=== PATIENT | male | born 1990 | race Caucasian/White ===

== ENCOUNTER 2021-08-12 22:47 | Emergency (ER) | payer OTHER, SELFPAY ==
[2021-08-12 22:57] VITALS: BMI 21.7
[2021-08-12 23:08] VITALS: BP 148/95; PULSE 116; RESP 16; TEMP 36.5; O2SAT 99
[2021-08-12 23:46] LABS: COVID-19 Test Negative (Negative); IDNOW Serial# 08D9AD1C
[2021-08-12 23:49] LABS: MANUAL DIFF FLAG NO
[2021-08-12 23:50] LABS: Basophils Absolute Auto 0.1 X10*3/uL (0.0-0.2); Basophils Percent Auto 0.5 % (0-2); Eosinophils Absolute Auto 0.3 X10*3/uL (0.0-0.4); Eosinophils Percent Auto 3.4 % (0-4); Hematocrit 45.4 % (42.0-52.0); Hemoglobin 16.1 g/dl (14.0-18.0); Imm Gran Abs Auto 0.05 X10*3/uL (0.00-0.03); Imm Gran Pct Auto 0.5 % (0.0-0.4); Lymphocytes Absolute Auto 3.4 X10*3/uL (1.2-4.9); Lymphocytes Percent Auto 35.8 % (20-40); Mean Corpuscular HGB Conc 35.5 g/dl (31.0-36.0); Mean Corpuscular Hemoglobin 29.6 pg (27.0-33.0); Mean Corpuscular Volume 83.5 fL (80.0-98.0); Mean Platelet Volume 9.7 fL (9.4-12.4); Monocytes Absolute Auto 0.7 X10*3/uL (0.1-1.2); Monocytes Percent Auto 6.8 % (2-11); Platelet Count 212 X10*3/uL (160-400); Red Blood Count 5.44 X10*6/uL (4.60-5.80); White Blood Count 9.5 X10*3/uL (4.8-10.8)
[2021-08-12 23:56] LABS: Amphetamine Screen Urine Not Detected (Not Detect); Barbiturates, Urine Not Detected (Not Detect); Benzodiazepines Screen Urine Not Detected (Not Detect); Cannabinoid Screen Urine Not Detected (Not Detect); Cocaine Screen Urine Not Detected (Not Detect); Fentanyl, urine Not Detected (Not Detect); Opiate Screen Urine Not Detected (Not Detect); Phencyclidine Screen Urine Not Detected (Not Detect)
--- NOTE | 2021-08-13 00:10 | ED_ITS ---
HPI - Psych General Chief Complaint: Psychiatric Symptoms Stated Complaint: ETOH Time Seen by Provider: 08/13/21 00:10 Source: patient Mode of arrival: ambulatory Limitations: no limitations History of Present Illness HPI Narrative: 30-year-old male no significant medical history presents to the emergency department with EMS on a Section 12 for suicidal ideation. According to EMS and patient patient was drinking today he tells me he had 5 twisted teas and he was drinking some bourbon, he texted his girlfriend made some comments he should in of said. His girlfriend called the police which showed of to his house and brought him in on a Section 12. Patient tells me he is very intoxicated. Denies drugs and and reports 2 packs per day of cigarettes. Denies visual, auditory and tactile hallucinations. At this time he is denying suicidal and homicidal ideation. Denies medical complaints. He has no psychiatric history that he knows of, no previous psych admissions. MD complaint: suicidal ideation Onset (ago): day(s) (1) Duration: constant History of same: No Relieving factors: none Exacerbating factors: none Context: recent alcohol abuse Associated psychiatric symptoms: none Associated symptoms: denies other symptoms Treatments prior to arrival: none Related Data Allergies Allergy/AdvReac Type Severity Reaction Status Date / Time pollen extracts Allergy Runny Nose Verified 08/12/21 23:08 Review of Systems Review of Systems: Constitutional : No Fever, No Chills ENT/Mouth : No sore throat, No Rhinorrhea Eyes: No Eye Pain, No Swelling, No Redness Cardiovascular : No Chest Pain, No SOB Respiratory : No Cough, No Sputum Gastrointestinal : No Nausea, No Vomiting, No Diarrhea, No abdominal Pain Genitourinary : No Dysuria, No Hematuria Musculoskeletal : No joint pain, No Myalgias, No Joint Swelling Skin : No Skin Lesions, No rash Neuro : No Weakness, No Numbness Psych : No Anxiety, No Depression, No SI/HI/AH/VH All other systems reviewed and are negative Yes all other systems are reviewed and are negative [facility] Past Medical History Attestation statement: The following information was validated with the patient. Source: old records reviewed and nursing notes reviewed Social History Social History Advance Directives: No Physical Exam Vital Signs: Vital Signs: Last Vital Signs Temp 97.7 F 08/12/21 23:08 Pulse 116 H 08/12/21 23:08 Resp 16 08/12/21 23:08 BP 148/95 H 08/12/21 23:08 Pulse Ox 99 08/12/21 23:08 BMI result Body Mass Index 21.7 Vital signs stable. Appearance: Alert.? Oriented X3.? No acute distress.? Head: Normocephalic, atraumatic, no step-offs or deformities Eyes: Pupils equal, round and reactive to light.? ENT: Pharynx normal.? Neck: Normal inspection.? Neck supple.? CVS: Normal heart rate and rhythm.? Pulses normal.? Respiratory: No respiratory distress.? Breath sounds normal.? Abdomen: Soft and nontender.? Skin: Skin warm and dry.? Normal skin color.? Normal skin turgor.? Extremities: No lower extremity edema.? No calf ttp. 5/5 strength to bilateral upper and lower extremities Neuro: Oriented X 3.? No motor deficit.? No sensory deficit. CN 2-12 intact Course Reevaluation(s) Reevaluation #1: CBC with no acute findings. Chemistry pending. Drugs of abuse screening negative. Ethanol pending. COVID negative. Time: 00:22 Reevaluation #2: Chemistry with no acute electrolyte abnormalities requiring intervention. Urine toxicology negative. Ethanol level 258. At this time patient will be placed in physician observation to allow more time to be evaluated by the behavioral health team. The time observation was started patient common cooperative no acute distress. Will continue monitor. Time: 01:05 MDM - Psych MDM Narrative Medical decision making narrative: [id number] 30-year-old male presents on a Section 12 via ambulance for making suicidal comments to his girlfriend who called 911. No previous SI at times. Denying SI and HI at this time. Tells me he was drinking a lot. Denies medical complaints. Physical exam benign. Patient does however ID to be intoxicated. Plan at this time is laboratory studies, medical clearance. Medical Records Attestation: I reviewed the patient's medical records. Lab Data Attestation: I reviewed the patient's lab results. Result diagrams: 08/12/21 23:44 08/12/21 23:44 Labs: Lab Results 08/12/21 08/12/21 08/12/21 Range/Units 23:14 23:15 23:44 WBC (4.8-10.8) X10*3/uL RBC (4.60-5.80) X10*6/uL Hgb (14.0-18.0) g/dl Hct (42.0-52.0) % MCV (80.0-98.0) fL MCH (27.0-33.0) pg MCHC (31.0-36.0) g/dl RDW (11.0-16.0) % Plt Count (160-400) X10*3/uL MPV (9.4-12.4) fL Immature Gran % (Auto) (0.0-0.4) % Neut % (Auto) (45-73) % Lymph % (Auto) (20-40) % [place] % (Auto) (2-11) % Eos % (Auto) (0-4) % Baso % (Auto) (0-2) % Lymph # (Auto) (1.2-4.9) X10*3/uL [place] # (Auto) (0.1-1.2) X10*3/uL Eos # (Auto) (0.0-0.4) X10*3/uL Baso # (Auto) (0.0-0.2) X10*3/uL Abs Immat Gran (auto) (0.00-0.03) X10*3/uL Absolute Neuts (auto) (2.0-8.3) x10*3/uL Absolute Nucleated RBC (0.0-0.012) X10*3/uL Nucleated RBC % (auto) (0.0-0.2) /100WBC Sodium (135-145) mmol/L Potassium (3.3-5.1) mmol/L Chloride (96-108) mmol/L Carbon Dioxide (22-29) mmol/L Anion Gap (12-20) BUN (9-16) mg/dL Creatinine (0.5-1.4) mg/dL Estim Creat Clear Calc Estimated GFR Random Glucose (60-115) mg/dL Calcium (8.4-10.2) mg/dL Urine Opiates Screen Not Detected (Not Detect) Urine Fentanyl Screen Not Detected (Not Detect) Ur Barbiturates Screen Not Detected (Not Detect) Ur Phencyclidine Scrn Not Detected (Not Detect) Ur Amphetamines Screen Not Detected (Not Detect) U Benzodiazepines Scrn Not Detected (Not Detect) Urine Cocaine Screen Not Detected (Not Detect) U Marijuana (THC) Screen Not Detected (Not Detect) Ethyl Alcohol 258 mg/dL COVID-19 (LIZA) Negative (Negative) COVID-19 Clin Com See Note 08/12/21 08/12/21 Range/Units 23:44 23:44 WBC 9.5 (4.8-10.8) X10*3/uL RBC 5.44 (4.60-5.80) X10*6/uL Hgb 16.1 (14.0-18.0) g/dl Hct 45.4 (42.0-52.0) % MCV 83.5 (80.0-98.0) fL MCH 29.6 (27.0-33.0) pg MCHC 35.5 (31.0-36.0) g/dl RDW 12.0 (11.0-16.0) % Plt Count 212 (160-400) X10*3/uL MPV 9.7 (9.4-12.4) fL Immature Gran % (Auto) 0.5 H (0.0-0.4) % Neut % (Auto) 53.0 (45-73) % Lymph % (Auto) 35.8 (20-40) % [place] % (Auto) 6.8 (2-11) % Eos % (Auto) 3.4 (0-4) % Baso % (Auto) 0.5 (0-2) % Lymph # (Auto) 3.4 (1.2-4.9) X10*3/uL [place] # (Auto) 0.7 (0.1-1.2) X10*3/uL Eos # (Auto) 0.3 (0.0-0.4) X10*3/uL Baso # (Auto) 0.1 (0.0-0.2) X10*3/uL Abs Immat Gran (auto) 0.05 H (0.00-0.03) X10*3/uL Absolute Neuts (auto) 5.0 (2.0-8.3) x10*3/uL Absolute Nucleated RBC 0.000 (0.0-0.012) X10*3/uL Nucleated RBC % (auto) 0.0 (0.0-0.2) /100WBC Sodium 142 (135-145) mmol/L Potassium 3.7 (3.3-5.1) mmol/L Chloride 102 (96-108) mmol/L Carbon Dioxide 25 (22-29) mmol/L Anion Gap 19 (12-20) BUN 15 (9-16) mg/dL Creatinine 1.14 (0.5-1.4) mg/dL Estim Creat Clear Calc 99.0 Estimated GFR > 60 Random Glucose 121 H (60-115) mg/dL Calcium 9.8 (8.4-10.2) mg/dL Urine Opiates Screen (Not Detect) Urine Fentanyl Screen (Not Detect) Ur Barbiturates Screen (Not Detect) Ur Phencyclidine Scrn (Not Detect) Ur Amphetamines Screen (Not Detect) U Benzodiazepines Scrn (Not Detect) Urine Cocaine Screen (Not Detect) U Marijuana (THC) Screen (Not Detect) Ethyl Alcohol mg/dL COVID-19 (LIZA) (Negative) COVID-19 Clin Com Critical Care Time Critical Care Time Critical Care Time: No Discharge Plan Discharge Clinical Impression: Suicidal ideation, Alcohol abuse Patient Disposition: Still a Patient
[2021-08-13 00:19] LABS: Ethanol 258 mg/dL
[2021-08-13 00:20] LABS: Anion Gap 19 (12-20); Blood Urea Nitrogen 15 mg/dL (9-16); Calcium 9.8 mg/dL (8.4-10.2); Carbon Dioxide 25 mmol/L (22-29); Chloride 102 mmol/L (96-108); Estimated Glomerular Filt Rate > 60; Glucose Random 121 mg/dL (60-115); Potassium 3.7 mmol/L (3.3-5.1); Sodium 142 mmol/L (135-145)
[2021-08-13] MEDS: Nicotine Polacrilex 2 MG GUM 4 MG BUCCAL ×4 (00:29→07:54)
--- NOTE | 2021-08-13 06:10 | PC.NURSE ---
Patient was up most part of the night, slept 21/2 hours, coherent, behavior appropriate, currently not on any medication, denied SI/HI/AVH, contracted for the safety, awaiting care team assessment, will continue to monitor.
--- NOTE | 2021-08-13 07:15 | PC.NURSE ---
patient appears to remain asleep at present respirations are even and unlabored patient appears in no distress.
--- NOTE | 2021-08-13 11:08 | MHC.CARE ---
CARE Team met with patient in [facility] this morning at 9:00 am, his girlfriend of nine years at bedside stayed by patient choice; both were pleasant and cooperative. Patient stated that he drank way too much last night and did not mean any of the things he said or texted and admitted that he was belligerent and his girlfriend did the right thing by calling 911. 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 Patient does not have mental health providers, has never been in therapy and declined referrals and said that his drinking is not usually out of control. Girlfriend explained that they live together and she does not have concerns about patient?s safety, she is in the healthcare field and if patient changes his mind about counseling she could help him navigate the process. ED provider ELI Jolley consulted and in agreement with plan to discharge without further intervention
== END 2021-08-13 09:37 | disposition home or self-care (01) ==
PROVIDERS: Physician Assistant; Emergency Provider Internal Medicine
DX: R45.851 Suicidal ideations (principal); F10.120 Alcohol abuse with intoxication, uncomplicated; Y90.8 Blood alcohol level of 240 mg/100 ml or more; F17.200 Nicotine dependence, unspecified, uncomplicated; Z20.822 Contact with and (suspected) exposure to COVID-19
CPT/HCPCS: 36415; 80048; 80307; 82077; 85025; 87635; 99284